=== PATIENT | male | born 1945 | race Caucasian/White ===

== ENCOUNTER 2024-03-16 12:17 | Inpatient (IN) ==
[2024-03-16 13:05] LABS: Basophils # (Auto) 0.02 K/mcL (0.00-0.30); Basophils % (Auto) 0.1 % (0.0-2.0); Eosinophils # (Auto) 0.02 K/mcL (0.00-0.70); Eosinophils % (Auto) 0.1 % (0.0-7.0); Hematocrit 34.8 % (40.1-51.0); Hemoglobin 11.9 g/dL (13.7-17.5); Lymphocytes # (Auto) 0.49 K/mcL (1.50-4.80); Lymphocytes % (Auto) 3.4 % (15.5-49.0); Mean Cell Volume 89.2 fL (80.0-100.0); Mean Corpuscular HGB Conc 34.2 g/dL (31.0-36.0); Mean Platelet Volume 9.1 fL (8.8-12.5); Monocytes % (Auto) 10.5 % (1.0-12.0); Neutrophils % (Auto) 85.8 % (38.0-78.0); Platelet Count 245 K/mcL (140-440); Red Cell Distribution Width 12.1 % (11.5-14.5); WBC 14.3 K/mcL (4.5-11.0)
[2024-03-16] MEDS: 0.9 % SODIUM CHLORIDE 1,000 ML IV ONE ×2 (13:15→14:49)
[2024-03-16] MEDS: cefTRIAXone 1 GM VIAL IV ONE (13:15)
[2024-03-16 13:25] LABS: Blood Urea Nitrogen 29 mg/dL (8-23); Calcium 9.3 mg/dL (8.6-10.4); Carbon Dioxide 18 mmol/L (22-30); Chloride 94 mmol/L (96-108); Glomerular Filtration Rate 44; Glucose 161 mg/dL (70-105); Potassium 4.5 mmol/L (3.3-5.1); Sodium 130 mmol/L (133-145)
[2024-03-16] MEDS: ACETAMINOPHEN 325 MG TABLET PO ONE (13:35)
[2024-03-16] MEDS: ONDANSETRON 4 MG/2 ML VIAL IV ONE (14:37)
[2024-03-16] MEDS: AZITHROMYCIN 250 MG TABLET PO ONE (14:42)
[2024-03-16] MEDS: IBUPROFEN 600 MG TABLET PO ONE (14:55)
[2024-03-16] MEDS ORDERED: IPRATROPIUM/ALBUTEROL 3 ML AMPUL.NEB NEB PRN (17:42)
[2024-03-16] MEDS ORDERED: POTASSIUM CHLORIDE 40 MEQ in DEXTROSE 5% IN WATER 500 ML IV PRN (17:42)
[2024-03-16] MEDS ORDERED: DEXTROSE 31 GM ORAL.SUSP PO PRN (17:42)
[2024-03-16] MEDS ORDERED: POTASSIUM CHLORIDE 20 MEQ TABLET PO PRN ×2 (17:42)
[2024-03-16] MEDS ORDERED: MAGNESIUM SULFATE 2 GM/50 ML BAG IV PRN (17:42)
[2024-03-16] MEDS ORDERED: ONDANSETRON 4 MG/2 ML VIAL IV PRN (17:42)
[2024-03-16] MEDS ORDERED: SENNOSIDES 1 TABLET PO PRN (17:42)
[2024-03-16] MEDS ORDERED: POLYETHYLENE GLYCOL 3350 17 GM PACKET PO PRN (17:42)
[2024-03-16] MEDS ORDERED: METOCLOPRAMIDE 10 MG/2 ML VIAL IV PRN (17:42)
[2024-03-16] MEDS ORDERED: DEXTROSE 50% 50 ML VIAL IV PRN (17:42)
[2024-03-16] MEDS ORDERED: ENALAPRILAT 1.25 MG/ML VIAL IV PRN (17:42)
[2024-03-16] MEDS: AZITHROMYCIN 500 MG in DEXTROSE 5% IN WATER 250 ML IV SCH (18:29)
[2024-03-16] MEDS: cefTRIAXone 1 GM VIAL IV SCH (18:29)
[2024-03-16] MEDS: INSULIN LISPRO 1 UNIT/0.01 ML UNIT SQ SCH (18:30)
[2024-03-16] MEDS: DOCUSATE SODIUM 100 MG CAPSULE PO SCH (20:32)
[2024-03-16] MEDS: ATORVASTATIN 40 MG TABLET PO SCH (20:52)
[2024-03-16] MEDS: ATORVASTATIN 40 MG TABLET ONE (20:53)
[2024-03-16] MEDS: INSULIN LISPRO 1 UNIT/0.01 ML UNIT SQ ONE (20:53)
[2024-03-16] MEDS: 0.9 % SODIUM CHLORIDE 10 ML SYRINGE IV SCH (20:57)
[2024-03-17] MEDS ORDERED: ACETAMINOPHEN 325 MG TABLET PO ONE (05:21)
[2024-03-17] MEDS: ACETAMINOPHEN 325 MG TABLET PO PRN (05:22)
[2024-03-17 06:08] LABS: Basophils # (Auto) 0.02 K/mcL (0.00-0.30); Basophils % (Auto) 0.2 % (0.0-2.0); Eosinophils # (Auto) 0.19 K/mcL (0.00-0.70); Eosinophils % (Auto) 1.5 % (0.0-7.0); Lymphocytes % (Auto) 5.6 % (15.5-49.0); Mean Corpuscular HGB Conc 33.3 g/dL (31.0-36.0); Mean Platelet Volume 9.2 fL (8.8-12.5); Monocytes # (Auto) 1.08 K/mcL (0.10-0.90); Monocytes % (Auto) 8.6 % (1.0-12.0); Neutrophils % (Auto) 83.8 % (38.0-78.0); Platelet Count 229 K/mcL (140-440); RBC 3.26 M/mcL (4.63-6.08); Red Cell Distribution Width 12.4 % (11.5-14.5); WBC 12.5 K/mcL (4.5-11.0)
[2024-03-17 06:45] LABS: ALT/SGPT 12 U/L (<40); AST/SGOT 30 U/L (<40); Albumin 2.9 gm/dL (3.2-5.2); Albumin/Globulin Ratio 1.1 (1.0-2.3); Alkaline Phosphatase 75 U/L (39-117); Bilirubin,Direct 0.2 mg/dL (<0.3); Bilirubin,Total 0.4 mg/dL (0.1-1.0); Blood Urea Nitrogen 31 mg/dL (8-23); Calcium 8.8 mg/dL (8.6-10.4); Carbon Dioxide 18 mmol/L (22-30); Chloride 101 mmol/L (96-108); Globulin 2.7 gm/dL (2.2-3.7); Glomerular Filtration Rate 52; Glucose 112 mg/dL (70-105); Lactate Dehydrogenase 193 U/L (135-225); Phosphorous 2.8 mg/dL (2.5-4.5); Potassium 4.4 mmol/L (3.3-5.1); Sodium 131 mmol/L (133-145); Triglycerides 88 mg/dL (<150); Uric Acid 8.2 mg/dL (2.5-8.0)
[2024-03-17] MEDS ORDERED: LOSARTAN 25 MG TABLET PO SCH (09:00)
[2024-03-17] MEDS: AZITHROMYCIN 500 MG in DEXTROSE 5% IN WATER 250 ML IV SCH (09:16)
[2024-03-17] MEDS: 0.9 % SODIUM CHLORIDE 1,000 ML IV ONE (09:16)
[2024-03-17] MEDS: ASPIRIN 81 MG TAB.CHEW PO SCH (09:29)
[2024-03-17] MEDS: cefTRIAXone 1 GM VIAL IV SCH (09:29)
[2024-03-17] MEDS: ENOXAPARIN 40 MG/0.4 ML SYRINGE SQ SCH (09:29)
[2024-03-17] MEDS: HYDROcodone/APAP 5/325MG TABLET PO PRN (16:03)
[2024-03-18 10:56] LABS: Basophils # (Auto) 0.05 K/mcL (0.00-0.30); Basophils % (Auto) 0.4 % (0.0-2.0); Eosinophils # (Auto) 0.27 K/mcL (0.00-0.70); Eosinophils % (Auto) 2.2 % (0.0-7.0); Hematocrit 30.1 % (40.1-51.0); Hemoglobin 10.1 g/dL (13.7-17.5); Lymphocytes # (Auto) 0.76 K/mcL (1.50-4.80); Lymphocytes % (Auto) 6.3 % (15.5-49.0); Mean Cell Volume 90.7 fL (80.0-100.0); Mean Corpuscular HGB Conc 33.6 g/dL (31.0-36.0); Mean Platelet Volume 9.3 fL (8.8-12.5); Monocytes # (Auto) 1.35 K/mcL (0.10-0.90); Monocytes % (Auto) 11.2 % (1.0-12.0); Neutrophils % (Auto) 79.2 % (38.0-78.0); Platelet Count 263 K/mcL (140-440); RBC 3.32 M/mcL (4.63-6.08); Red Cell Distribution Width 12.8 % (11.5-14.5); WBC 12.1 K/mcL (4.5-11.0)
[2024-03-18 11:09] LABS: ALT/SGPT 20 U/L (<40); AST/SGOT 37 U/L (<40); Albumin 2.8 gm/dL (3.2-5.2); Alkaline Phosphatase 88 U/L (39-117); Bilirubin,Direct < 0.2 mg/dL (0-0.3); Bilirubin,Total 0.3 mg/dL (0.1-1.0); Blood Urea Nitrogen 20 mg/dL (8-23); Carbon Dioxide 19 mmol/L (22-30); Chloride 103 mmol/L (96-108); Globulin 2.8 gm/dL (2.2-3.7); Glomerular Filtration Rate 72; Glucose 112 mg/dL (70-105); Lactate Dehydrogenase 246 U/L (135-225); Phosphorous 2.7 mg/dL (2.5-4.5); Potassium 4.3 mmol/L (3.3-5.1); Sodium 136 mmol/L (133-145); Triglycerides 120 mg/dL (<150); Uric Acid 7.5 mg/dL (2.5-8.0)
[2024-03-18 14:10] VITALS: TEMP 98.6; O2SAT 93
== END 2024-03-18 13:55 | disposition home or self-care (01) | DRG 871 ==
LOC: ED 12:17 → MEDSUR 17:12 → ED 17:12
PROVIDERS: ADMIT Internal Medicine; ATTEND Internal Medicine